=== PATIENT | female | born 1985 | race Caucasian/White ===

== ENCOUNTER 2020-10-18 16:42 | Emergency (ER) | payer OTHER ==
[~2020-10-18 16:42] MED LIST: ASPIR 8181 MG PO; CO Q-10200 MG PO; FOLIC ACID1 MG PO; HYDROCODON-ACE1 EAC4 PO; MYO INOSITOL PO; PEPCID AC20 MG PO; PHENERGAN25 M1 PO; PRENATAL FORMU1 EACH PO; SYNTHROID50 MCG PO
[2020-10-18] MEDS ORDERED: ETODOLAC500 MG PO (19:15)
== END 2020-10-18 19:30 | disposition home or self-care (01) ==
LOC: FER 16:42
DX: S80.12XA Contusion of left lower leg, initial encounter (principal); J45.909 Unspecified asthma, uncomplicated; E66.9 Obesity, unspecified; W00.0XXA Fall on same level due to ice and snow, initial encounter; Y92.89 Other specified places as the place of occurrence of the external cause; Y99.0 Civilian activity done for income or pay
CPT/HCPCS: 73552; 73564; 73590

== ENCOUNTER → 2021-04-29 | Day surgery (SDC) | payer OTHER ==
[~2021-04-29] VITALS: Ht 172.7 cm; Wt 109.0 kg
[~2021-04-29] MED LIST changes: +COLACE100 MG PO; +DILTIAZEM TOP; +ETODOLAC500 MG PO; +FLUTICASONE PRO16 GM; +LEXAPRO 10MG TA10 MG PO; +LIDOCAINE TOP; +ZOLMITRIPTAN5 MG PO; +[UNRECOGNIZED DRUG - OTHER] TOP
[2021-04-29 10:19] LABS: HCG (URINE) SCREEN NEGATIVE (NEGATIVE)
== END | disposition home or self-care (01) ==
LOC: FAS 09:55
PROVIDERS: Student in an Organized Health Care Education/Training Program
DX: K64.8 Other hemorrhoids (principal); K60.2 Anal fissure, unspecified; K52.9 Noninfective gastroenteritis and colitis, unspecified; K21.9 Gastro-esophageal reflux disease without esophagitis; F41.9 Anxiety disorder, unspecified; J45.909 Unspecified asthma, uncomplicated; J32.9 Chronic sinusitis, unspecified; G43.909 Migraine, unspecified, not intractable, without status migrainosus; Z88.6 Allergy status to analgesic agent; Z90.49 Acquired absence of other specified parts of digestive tract; D68.59 Other primary thrombophilia
CPT/HCPCS: 84703; J0585; J0585-JG; J2704; J7120